=== PATIENT | female | born 1970 | race Caucasian/White ===

== ENCOUNTER 2022-08-06 21:21 | Emergency (ER) | payer OTHER ==
[2022-08-06] MEDS ORDERED: Lidocaine 1% w/Epinephrine 1:100K 20 ML VIAL ONE (21:52)
[2022-08-06] MEDS ORDERED: Boostrix 0.5 ML (Tdap) VIAL (>/=7 yrs of age) ONE (21:52)
[2022-08-06] MEDS ORDERED: Ondansetron PF 4 MG/2 ML Vial ONE (21:52)
[2022-08-06] MEDS ORDERED: Ketorolac Tromethamine 30 MG/ML VIAL ONE (21:52)
[2022-08-06] MEDS ORDERED: Fentanyl 100 MCG/2 ML VIAL ONE ×2 (21:52→22:53)
[2022-08-06] MEDS ORDERED: Lidocaine 1% w/Epinephrine 1:100K 20 ML VIAL IJ SCH (22:15)
[2022-08-06] MEDS ORDERED: Amoxicillin/Potassium Clav 875 MG TAB ONE (22:22)
[2022-08-07] MEDS ORDERED: Lidocaine 1% w/Epinephrine 1:100K 20 ML VIAL ONE (00:05)
[2022-08-07] MEDS ORDERED: Fentanyl 100 MCG/2 ML VIAL ONE (01:21)
[2022-08-07] MEDS ORDERED: Bacitracin 1 PK ONE (01:49)
[2022-08-07] MEDS ORDERED: Acetaminophen 500 MG TAB ONE (01:49)
[2022-08-07] MEDS ORDERED: Ondansetron ODT 4 MG TAB ONE (01:53)
== END 2022-08-07 02:01 | disposition home or self-care (01) ==
LOC: ERS 21:21
DX: S41.152A Open bite of left upper arm, initial encounter (principal); S41.151A Open bite of right upper arm, initial encounter; W54.0XXA Bitten by dog, initial encounter; Z23 Encounter for immunization
CPT/HCPCS: 12004; 12037; 90471; 90715; 96374; 96375; 96376; J1885; J2405; J3010; Q0162